=== PATIENT | female | born 1965 | race Caucasian/White ===

== ENCOUNTER → 2024-03-30 09:41 | Outpatient (CLI) | payer MEDICAID, SELFPAY ==
--- NOTE | 2024-03-30 09:45 | USCV_ITS ---
Eboni Parikh Age: 58 Gender: F : 1965 Exam Date: 03/30/2024 09:36 Ordering Phys: Clair Lackey Technologist: Exam Location: [facility] – [place]_ Indication: LE Swelling RIGHT LEFT Brachial 148.00 mmHg Brachial 138.00 mmHg Pressure (mmHg) Waveform Pressure (mmHg) Waveform 198.00 TIE BUCKER 149.00 DPA 145.00 1.34 Ankle/Brachial Index 1.01 134.00 Pre-Exercise Toe Pressure 134.00 0.91 Pre-Exercise Toe/Brachial Index 0.91 FINDINGS RT DPA noncompressible. Resting LUCY 1.34 on the right side and 1.01 on the left side. Resting TBI of 0.91 on the right side and 0.91 on the left side Right dorsalis pedis artery is noncompressible CONCLUSIONS 1. Normal resting ABIs and TBIs bilaterally suggesting no significant arterial obstruction Dr Domi Montgomery MD [facility] (Electronically Signed) Final Date: 30 March 2024 22:44 S
== END | disposition home or self-care (01) ==
LOC: RAD 09:41
PROVIDERS: PCP Physician Assistant; Visit Provider Physician Assistant
DX: I89.0 Lymphedema, not elsewhere classified (principal)
CPT/HCPCS: 93922

== ENCOUNTER 2024-04-07 12:45 | Outpatient (CLI) | payer MEDICAID, SELFPAY ==
--- NOTE | 2024-04-07 12:52 | MM_ITS ---
WS: [id number] VIEWS: MLO and CC views both breasts. 3D digital tomosynthesis is also included in this exam. No priors. Findings: There was no sign of mass, architectural distortion or suspicious calcification in either breast. The re are scattered areas of fibroglandular density MM/[place] [id number] Impression: BI-RADS: 2-Benign finding. FOLLOW-UP: 1 Year Follow-up This mammogram was also analyzed by the Computer Aided Detection System R2 Imag e Law Office Receptionist.
--- NOTE | 2024-04-07 12:52 | XR_ITS ---
WS: [id number] SCREENING DEXA SCAN Patients Know Best CLINICAL INFORMATION: POSTMENOPAUSAL COMPARISON: None. FINDINGS: The L1-L4 bone mineral density measures 1.162 g/cm2. This corresponds to a T score score of -0.2 and Z score of -0.4. Left femoral neck bone mineral density measures 1.120 g/cm2. This corresponds to a T score of 0.9 and Z score of 0.8. Right femoral neck bone mineral density measures 1.064 g/cm2. This corresponds to a T score 0.4of and Z score of 0.3. Mean femoral neck bone mineral density measures 1.092 g/cm2. This corresponds to a T score of 0.7 and Z score of 0.6. XR/XR DEXA axial skeleton* [id number] IMPRESSION: Normal bone mineralization. Patient's FRAX calculated 10 year probability for major osteoporotic fracture i s 5.7% and osteoporotic hip fracture is 0.4%.
== END 2024-04-07 12:46 | disposition home or self-care (01) ==
LOC: RAD 12:45
PROVIDERS: PCP Physician Assistant; Visit Provider Physician Assistant
DX: Z12.31 Encounter for screening mammogram for malignant neoplasm of breast (principal); R92.323 Mammographic fibroglandular density, bilateral breasts; Z78.0 Asymptomatic menopausal state
CPT/HCPCS: 77063; 77067; 77080

== ENCOUNTER → 2024-04-22 10:41 | Outpatient (BNVA) | payer MEDICAID, SELFPAY | PROVIDERS: PCP Physician Assistant; Visit Provider Podiatrist Foot & Ankle Surgery | DX: B35.1 Tinea unguium; G62.9 Polyneuropathy, unspecified; E11.42 Type 2 diabetes mellitus with diabetic polyneuropathy | CPT/HCPCS: 11721; 99203 ==

== ENCOUNTER 2024-04-27 14:26 | Outpatient (CLI) | payer MEDICAID, SELFPAY ==
--- NOTE | 2024-04-27 14:36 | CT_ITS ---
WS: [id number] CT ABDOMEN AND PELVIS WITH AND WITHOUT CONTRAST HISTORY: LUQ PAIN TECHNIQUE: Unenhanced 5 mm axial imaging first performed through the abdomen. Post contrast imaging t hrough the abdomen and pelvis. Oral contrast has been provided. Sagittal and coronal reformats are s ubmitted. All CT scans at [facility] use at least one of these dose optimization techniques: automated exposure control; mA and/or kV adjustment per patient size (includes targeted exams where d ose is matched to clinical indication); or iterative reconstruction. CONTRAST: Omnipaque 350; 95 mL IV. DLP: 2627.98 mGy.cm COMPARISON: None available. Lung bases are clear. Heart size is normal. No hiatal hernia. Normal liver and spleen. Gallbladder is slightly contracted and there is a calcification within the g allbladder. No pericholecystic fluid. Normal common bile duct. Normal adrenal glands. No renal obstru ction or calcification. Normal aorta. Pancreas: Uncinate process, head and neck of the pancreas are normal. There is a very bulbous appeara nce of the distal pancreatic tail measuring 2.4 x 2.6 cm. Typically the pancreatic tail tapers to a s maller caliber than the body. The bulbous portion of the pancreatic tail is similar enhancement to th e adjacent normal-appearing pancreatic body. Due to the abnormal configuration additional work-up is thought to necessary at this time to be sure there is no underlying mass. There is no adjacent adenop athy. The portal vein and splenic veins are normal. No ascites or adenopathy. No GI tract obstruction or inflammation. Normal appendix. No acute divertic ulitis. Degenerative disc disease at L5-S1. CT/CT abdomen pelvis wo/w [id number] IMPRESSION: 1. Bulbous appearance of the distal pancreatic tail measures 2.4 x 2.6 cm. The enhancement and attenuation is similar to the proximal normal pancreas. Typica lly the pancreatic tail tapers in size. This may be a normal configuration but is not typical. Therefore, recommend MRI pancreas with and without contrast for further evaluation. 2. Mildly contracted gallbladder with cholelithiasis. 3. No ascites or adenopathy. 4. No renal obstruction.
[2024-04-27] MEDS: iohexol 350 mg/mL 500 mL Btl (per mL) PO (14:52)
[2024-04-27] MEDS: iohexol 350 mg/mL 500 mL Btl (per mL) IV (15:55)
== END 2024-04-27 14:27 | disposition home or self-care (01) ==
LOC: RAD 14:27
PROVIDERS: PCP Physician Assistant; Visit Provider Physician Assistant
DX: R10.12 Left upper quadrant pain (principal); R93.5 Abnormal findings on diagnostic imaging of other abdominal regions, including retroperitoneum; K80.20 Calculus of gallbladder without cholecystitis without obstruction; M51.36 Other intervertebral disc degeneration, lumbar region
CPT/HCPCS: 74178; Q9967

== ENCOUNTER 2024-06-02 08:40 | Outpatient (CLI) | payer MEDICAID, SELFPAY ==
--- NOTE | 2024-06-02 08:45 | MRR_ITS ---
PROCEDURE INFORMATION: Exam: MR Abdomen Without and With Contrast Exam date and time: 06/02/2024 9:32 AM Age: 58 years old Clinical indication: Abdominal pain; Localized; Left upper quadrant (luq); Patient HX: PT states she has gall stones and pancreas inflammation; Additional info: Luq pain TECHNIQUE: Imaging protocol: Magnetic resonance imaging of the abdomen without and with contrast. COMPARISON: CT abdomen pelvis wo/w [id number] 04/27/2024 3:49 PM FINDINGS: Liver: Mildly decreased signal of the liver on out of phase imaging relative to in phase imaging. No mass. Gallbladder and biliary ducts: At least 2 dependent filling defects in the gallbladder, the larger 6.9 mm. Minimal pericholecystic fluid (series 401, image 25). The gallbladder transverse lumen measures 3.5 cm. No pericholecystic edema or definite wall thickening. Mild posterior intraluminal gallbladder sludge. The common bile duct measures 4.6 mm. No ductal calculi as visualized. Pancreas: No specific pancreatic abnormality identified. Specifically, no pancreatic tail mass identified.. Spleen: Unremarkable. No splenomegaly. Adrenal glands: Unremarkable. No mass. Kidneys and ureters: Unremarkable. No solid mass. No hydronephrosis. Stomach and bowel: Visualized stomach and intestines are unremarkable. Intraperitoneal space: No free fluid. Vasculature: No abdominal aortic aneurysm. Lymph nodes: No enlarged nodes. Bones/joints: No acute abnormality identified. No suspicious lesions. Soft tissues: Unremarkable. MR/MR abdomen wo/w con* [id number] IMPRESSION: 1. Cholelithiasis, gallbladder sludge, minimal pericholecystic fluid. No luminal dilatation or wall thickening to specifically suggest acute cholecystitis. 2. No specific pancreatic abnormality identified. Specifically, no pancreatic tail mass identified.. 3. Mild fatty infiltration of the liver.
[2024-06-02] MEDS: gadobenate dimeglumine 20 mL vial IV (10:19)
== END 2024-06-02 08:41 | disposition home or self-care (01) ==
LOC: RAD 08:41
PROVIDERS: PCP Physician Assistant; Visit Provider Family Medicine
DX: R10.12 Left upper quadrant pain (principal); K80.20 Calculus of gallbladder without cholecystitis without obstruction; K76.0 Fatty (change of) liver, not elsewhere classified
CPT/HCPCS: 74183; A9577

== ENCOUNTER 2024-06-28 20:00 | Outpatient (CLI) | payer MEDICAID, SELFPAY | END 2024-06-28 20:01 | disposition home or self-care (01) | LOC: SLEEP 23:05 | PROVIDERS: PCP Physician Assistant; Visit Provider Physician Assistant | DX: G47.33 Obstructive sleep apnea (adult) (pediatric) (principal); G47.36 Sleep related hypoventilation in conditions classified elsewhere | CPT/HCPCS: 95810 ==

== ENCOUNTER 2024-11-02 20:00 | Outpatient (CLI) | payer MEDICAID, SELFPAY | END 2024-11-02 20:01 | disposition home or self-care (01) | LOC: SLEEP 23:31 | PROVIDERS: PCP Physician Assistant; Visit Provider Physician Assistant | DX: G47.33 Obstructive sleep apnea (adult) (pediatric) (principal) | CPT/HCPCS: 95811 ==

== ENCOUNTER → 2024-11-09 10:49 | Outpatient (BNVA) | payer MEDICAID, SELFPAY | PROVIDERS: PCP Physician Assistant; Visit Provider Podiatrist Foot & Ankle Surgery | DX: B35.1 Tinea unguium (principal); G62.9 Polyneuropathy, unspecified; E11.42 Type 2 diabetes mellitus with diabetic polyneuropathy | CPT/HCPCS: 11721; 99213 ==

== ENCOUNTER 2025-02-24 14:01 | Outpatient (CLI) | payer MEDICAID, SELFPAY ==
--- NOTE | 2025-02-24 14:04 | MRR_ITS ---
PROCEDURE INFORMATION: Exam: MR Right Lower Extremity Joint Without Contrast, Knee Exam date and time: 02/24/2025 2:26 PM Age: 59 years old Clinical indication: Chronic right knee pain/history of multiple falls; Additional info: R medial knee pain TECHNIQUE: Imaging protocol: Magnetic resonance imaging of the right lower extremity joint without contrast. Exam focused on the knee. COMPARISON: CR XR knee RT 3V* [id number] 02/14/2025 12:16 PM FINDINGS: Bones/joints: No acute fracture or dislocation. Lateral compartment demonstrates intact joint space and articular cartilages. Medial compartment demonstrates mild loss joint space with associated mild chondromalacia. 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 Clinically correlate and follow-up as clinically indicated Bursae: Tiny Mccollum's cyst Medial meniscus: Large radial tear involving the free edge of the posterior horn of the medial meniscus; the tear likely extends into the meniscal body. Meniscal body is mostly extruded from joint space Lateral meniscus: Lateral meniscus is suboptimally visualized but demonstrates a likely large oblique tear of its posterior horn Anterior cruciate ligament: Unremarkable. No tear. Posterior cruciate ligament: Unremarkable. No tear. Medial capsule and supporting structures: Unremarkable. No tear. Lateral capsule and supporting structures: Unremarkable. No tear. Extensor mechanism of knee: Prominent patellar tendinosis Soft tissues: Nonspecific prepatellar subcutaneous edema. Subtle posterior calf muscle strains MR/MR knee RT wo con* [id number] IMPRESSION: 1. Medial compartment DJD as described including chondromalacia, and medial meniscus degeneration and complex tearing. 2. Suspected lateral meniscus tear as described 3. Prominent patellar tendinosis 4. 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 5. Small joint effusion
== END 2025-02-24 14:02 | disposition home or self-care (01) ==
PROVIDERS: PCP Physician Assistant; Visit Provider Physician Assistant
DX: M17.11 Unilateral primary osteoarthritis, right knee (principal); M94.261 Chondromalacia, right knee; R93.6 Abnormal findings on diagnostic imaging of limbs; M76.51 Patellar tendinitis, right knee; M25.461 Effusion, right knee; S83.241A Other tear of medial meniscus, current injury, right knee, initial encounter; S86.811A Strain of other muscle(s) and tendon(s) at lower leg level, right leg, initial encounter; X58.XXXA Exposure to other specified factors, initial encounter; M79.89 Other specified soft tissue disorders
CPT/HCPCS: 73721

== ENCOUNTER → 2025-03-10 10:52 | Outpatient (BNVA) | payer MEDICAID, SELFPAY | PROVIDERS: PCP Physician Assistant; Visit Provider Orthopaedic Surgery | DX: M17.11 Unilateral primary osteoarthritis, right knee (principal); S83.241A Other tear of medial meniscus, current injury, right knee, initial encounter; X58.XXXA Exposure to other specified factors, initial encounter | CPT/HCPCS: 99204 ==

== ENCOUNTER 2025-04-19 09:16 | Day surgery (SDC) | payer MEDICAID, SELFPAY ==
[2025-04-19] VITALS (11 sets, daily range): BP systolic 115–152; BP diastolic 83–98; PULSE 78–90; RESP 7–17; TEMP 36.1–36.3; O2SAT 93–100; BMI 32.0
--- NOTE | 2025-04-19 10:16 | ANES.PREANE2 ---
Pre-Anesthetic Assessment Height/Weight: Height 1.57 m Weight 79.379 kg Temp Pulse Resp BP Pulse Ox O2 Del Method 97.0 F L 86 17 152/93 94 Room Air 04/19/25 09:59 04/19/25 09:59 04/19/25 09:59 04/19/25 09:59 04/19/25 09:59 04/19/25 10:00 Operation Date: 04/19/25 11:40 Proposed Procedures p Knee Arthroscopy Knee Arthroscopy w/ Medial Menisectomy(Right) - Ned Lam MD Familial anesthetic complications: None Was Beta Diana taken within 24 hours: N/A Was Clonidine taken within 24 hours: N/A Last intake: Intake Last Liquid Date 04/18/25 Last Liquid Time 22:30 Last Solid Date 04/18/25 Last Solid Time 20:30 Social No alcohol and No tobacco Exam alert, oriented x 3, clear to auscultation bilaterally and regular rate & rhythm Airway Mallampati: Class IV Dentition: other (no teeth) Metabolic Diabetes Mellitus and Morbid Obesity Anesthetic Plan ASA status: 3 Anesthesia: General Risk of > 500 ml blood loss (7ml/kg in children): No Medications/Allergies Home Medications ?Medication ?Instructions ?Recorded ?Confirmed ?Last Taken ?Type furosemide 40 mg tablet 80 mg PO DAILY 04/22/24 04/18/25 04/18/25 History potassium chloride 20 mEq 40 meq PO DAILY 04/22/24 04/18/25 04/18/25 History tablet,extended release(part/cryst) diabetic shoes with 3 inserts #1 ea 11/09/24 03/10/25 Unknown Rx tirzepatide (weight loss) 2.5 2.5 mg SUBCUT Q7D 04/18/25 04/18/25 04/03/25 History mg/0.5 mL subcutaneous pen injector (Zepbound) Allergies Allergy/AdvReac Type Severity Reaction Status Date / Time naproxen (From Aleve) Allergy ADR-Gastrointestinal Verified 04/19/25 09:52 Upset Opioids - Morphine Analogues Allergy ADR-Gastrointestinal Verified 04/19/25 09:52 Upset PFSH Anesthesia Social History Smoking and tobacco/nicotine status: never used tobacco/nicotine
--- NOTE | 2025-04-19 11:08 | W.PM.OPSUD ---
Surgery/Procedure H&P Update DATE OF PROCEDURE: April 19, 2025 DATE H&P PERFORMED: 03/10/25 H&P UPDATE INFORMATION: I have reviewed H&P completed within last 30 days, I have examined patient prior to procedure and No changes to prior documentation PREOP DIAGNOSIS: Internal derangement of the right knee PLANNED PROCEDURE: Operation Date: 04/19/25 11:40 Proposed Procedures p Knee Arthroscopy Knee Arthroscopy w/ Medial Menisectomy(Right) - Ned Lam MD
[2025-04-19] MEDS: ceFAZolin 2,000 mg SDV 2000 MG IVP (11:41)
[2025-04-19] MEDS: BUPivacaine 0.5% INJ 30 mL INJECTION (12:36)
--- NOTE | 2025-04-19 12:49 | PM.OP ---
Operative Report Date of procedure: April 19, 2025 Surgeon: Ned Lam MD Procedure: Preoperative diagnosis: Internal derangement of the right knee Postoperative diagnosis: Grade II/III chondromalacia the posterior patella, medial femoral condyle, IT groove. Degenerative tearing of the posterior horn medial meniscus and central to anterior portion of lateral meniscus. Hypertrophic synovium Procedure: Diagnostic right knee arthroscopy with chondroplasty of posterior patella IT groove and medial femoral condyle. Partial meniscectomy of the posterior horn medial meniscus and anterior one half lateral meniscus. Surgeon: eNd Lam MD Anesthesia: General EBL: None Indications: bEoni is a 59-year-old white female is referred in the orthopedic clinic for debilitating right knee pain. Subsequently had an MRI by her primary care demonstrating degenerative changes of the medial compartment of the knee primarily included the posterior horn medial meniscus and articular cartilage wear the medial femoral condyle as well as the posterior patella. After failing all conservative measures she was offered a diagnostic knee arthroscopy with all indicated procedures. I did indicate that more likely is going to end up with a total knee arthroplasty in the future especially if she continues to carry the weight that she has and with the present wear in her knee already. All risk benefits treatment alternatives were discussed with her and she is agreeable to this at this time. Procedure: After obtaining her consent patient taken the operative room placed op table supine position general anesthetic administered. Once good anesthesia achieved patient was positioned on the bed with a leg salazar around her right leg just above the knee. Left leg was padded appropriately and foot the bed was dropped. Patient was secured to the bed. Right leg and knee were prepped and draped usual fashion. After surgical timeout standard anterior medial and lateral portals were made with no #11 blade. Camera cast placed into the lateral portal anterior knee was undertaken. Suprapatellar pouch was quite full of hypertrophic synovium. There is a large thickened medial plica There that was debrided with mechanical shaver. Posterior patella demonstrated grade II/III chondromalacia this too is debrided down to stable cartilaginous space. Corresponding IT groove contact areas patella also grade 2 3 chondromalacia this too was debrided mechanical shaver. Medial gutter was clear other than synovium. Medial compartment demonstrated grade 2 3 chondromalacia of the central weightbearing surface of the medial femoral condyle. There is degenerative tearing and fraying of the posterior horn of the medial meniscus. This is subsequently debrided down to stable cartilaginous space with small hand instruments and mechanical shaver. Chondromalacia was debrided with mechanical shaver down to stable cartilaginous space. Intercondylar notch demonstrated hypertrophic synovium but intact anterior cruciate ligament. Lateral compartment demonstrated on the inner edge of the anterior portion of the meniscus to be fraying and tearing this too is debrided down to a stable cartilaginous base with mechanical shaver. The remainder of articular surface of the lateral compartment is in good shape. Knee was washed sterile irrigation. Candycane layers were removed. Wounds are closed with 3-0 Prolene interrupted sutures. The wounds were injected with half percent Marcaine plain totaling 30 cc for both incision lines. Wounds are clean and dry dressed with Xeroform gauze, sterile gauze dressing, sterile Webril and an Fady wrap for compression. Patient was awakened transferred to cover room stable condition
[2025-04-19] MEDS: fentaNYL 50 mcg/mL INJ 2mL IVP (13:28)
--- NOTE | 2025-04-19 13:40 | SUR.PHASEII ---
Upon arrival from PACU patient stated her knee was hurting and rated it 8/10. Fentanyl was administered thru IV to get pain tolerable prior to discharge.
[2025-04-19] MEDS: HYDROcodone-acetaminophen 5-325 mg Tablet 1 TAB PO (14:00)
--- NOTE | 2025-04-19 14:20 | ANE.PACU2 ---
Inpatient post-anesthesia follow up: Airway intact: Yes Vital signs: Temperature 97.3 F Pulse Rate 78 Respiratory Rate 16 Blood Pressure 134/89 Pulse Oximetry 100 Oxygen Delivery Me thod Room Air Oxygen Flow Rate Fraction of Inspir ed Oxygen Hydration adequate: Yes Nausea and vomiting: No Pain level: 1 Mental status: Baseline
== END 2025-04-19 14:20 | disposition home or self-care (01) ==
PROVIDERS: PCP Physician Assistant; Visit Provider Orthopaedic Surgery
PROC: (CPT 29870; principal; 2025-04-19 11:30)
DX: M22.41 Chondromalacia patellae, right knee (principal); M23.229 Derangement of posterior horn of medial meniscus due to old tear or injury, unspecified knee; M23.2 Derangement of meniscus due to old tear or injury; M67.261 Synovial hypertrophy, not elsewhere classified, right lower leg; E11.9 Type 2 diabetes mellitus without complications; E66.01 Morbid (severe) obesity due to excess calories; Z68.32 Body mass index [BMI] 32.0-32.9, adult
CPT/HCPCS: 27437; 29880; 36416; 82962; J0690; J1100; J2250; J2405; J2704; J3010; J3490; J7030; J9999

== ENCOUNTER 2025-04-27 08:23 | Emergency (ER) | payer MEDICAID, SELFPAY ==
[2025-04-27 08:23] VITALS: BP 137/86; PULSE 92; RESP 18; TEMP 36.9; O2SAT 99; BMI 33.6
--- NOTE | 2025-04-27 08:32 | XR_ITS ---
WS: [id number] XR knee RT 3V* [id number] REASON FOR EXAM: Postop pain FINDINGS: Compared to the preoperative examination of 02/14/2025, there is increased joint effusion. There is a more significant enlargement with increased density of Hoffa's fat pad. Joint spaces are intact and no focal bone abnormality is identified. XR/XR knee RT 3V* [id number] IMPRESSION: Progression of abnormality seen on the previous plain film examination of . MRI of the knee on 02/24/2025 demonstrated significant complex abnormality of Ho ffa's fat pad and joint effusion. Uncertain if the current abnormality has prog ressed compared to the MRI.
--- NOTE | 2025-04-27 08:32 | W.ED.GENADLT ---
HPI - General Adult General: Chief complaint: Extremity Problem,Nontraumatic Stated complaint: right knee pain - post op Time Seen by Provider: 04/27/25 08:32 History of Present Illness: 59-year-old female presents to the emergency room with complaint of right knee and leg pain. Patient is 1 week postop knee arthroplasty she has Kotick swelling in her leg still has a little increased swelling and diffuse discomfort throughout the leg particularly at the knee but in the calf and medial thigh as well. No chest pain no shortness of breath. She does still have incisions with sutures in place there is no purulent drainage no redness no erythema or induration. No fever sweats or chills. Patient is diabetic. Tells me she has a history of neuropathy Associated symptoms: Deny chest pain, dyspnea or rash Related Data Home Medications ?Medication ?Instructions ?Recorded ?Confirmed furosemide 40 mg tablet 80 mg PO DAILY 04/22/24 04/18/25 potassium chloride 20 mEq 40 meq PO DAILY 04/22/24 04/18/25 tablet,extended release(part/cryst) tirzepatide (weight loss) 2.5 2.5 mg SUBCUT Q7D 04/18/25 04/18/25 mg/0.5 mL subcutaneous pen injector (Zepbound) Previous Rx's ?Medication ?Instructions ?Recorded diabetic shoes with 3 inserts #1 ea 11/09/24 hydrocodone 5 mg-acetaminophen 325 1 tab PO Q6H PRN pain #30 tabs 04/19/25 mg tablet Allergies Allergy/AdvReac Type Severity Reaction Status Date / Time naproxen (From Aleve) Allergy ADR-Gastrointestinal Verified 04/19/25 09:52 Upset Opioids - Morphine Analogues Allergy ADR-Gastrointestinal Verified 04/19/25 09:52 Upset Review of Systems Const: Denies: fever(s) or chills Card: Denies: chest pain Resp: Denies: dyspnea GI: Denies: abdominal pain : Denies: dysuria, urinary frequency or urinary urgency Musc: Denies: neck pain or back pain Skin/Breast: Denies: rash PFSH ED PFSH: Social History Smoking and tobacco/nicotine status: never used tobacco/nicotine Physical Exam Const: GENERAL APPEARANCE: cooperative ORIENTATION/CONSCIOUSNESS: Yes awake, Yes oriented to person, Yes oriented to place and Yes oriented to time HENMT: COMMON NORMALS: normocephalic, atraumatic and hearing grossly normal bilaterally HEAD & SCALP: normocephalic and atraumatic Resp: COMMON NORMALS: normal respiratory effort, No retractions, No use of accessory muscles and clear to auscultation bilaterally AUSCULTATION: clear to auscultation bilaterally Cardio: COMMON NORMALS: regular rate, regular rhythm and No murmurs present (Cardio) RATE: regular rate RHYTHM: regular rhythm GI: COMMON NORMALS: Soft to palpation and No hepatosplenomegaly present AUSCULTATION: Yes normoactive bowel sounds PALPATION: Yes Soft to palpation, No Tenderness to palpation present (GI), No Guarding due to palpation present (GI) and Yes No hepatosplenomegaly present Extremity: OTHER: Bilaterally patient has edema lower extremities slightly greater in the right than on the left. Patient reports calf pain with positive Homans. There is also pain with palpation of the medial distal thigh. Mild swelling at the knee no redness no erythema examination of the incision showed knee arthroscopy they are not inflamed or indurated there is no drainage Neuro: SENSORIUM/ORIENTATION: Yes oriented to person, Yes oriented to place and Yes oriented to time Skin: COMMON NORMALS: no rashes or lesions noted GENERAL SKIN EXAM: no rashes or lesions noted Course Vital Signs: Vital signs: Vital Signs Temperature 98.4 F 04/27/25 08:23 Pulse Rate 92 04/27/25 08:23 Respiratory Rate 18 04/27/25 08:23 Blood Pressure 137/86 04/27/25 08:23 Pulse Oximetry 99 04/27/25 08:23 Oxygen Delivery Me thod Room Air 04/27/25 08:23 [facility] - General Adult Medical Decision Making Venous duplex negative for DVT. There is small joint effusion noted on plain film as well. The plain x-ray is also normal discharge patient home continue to use crutches follow-up with your surgeon regarding any further problems. no trauma associated with this since surgery. Medical Records I reviewed the patient's medical records. Lab Data I reviewed the patient's lab results. 04/27/25 08:48 04/27/25 08:48 Radiology Impressions Knee X-Ray 04/27/25 08:32 IMPRESSION: Progression of abnormality seen on the previous plain film examination of 02/14/2025. MRI of the knee on 02/24/2025 demonstrated significant complex abnormality of Hoffa's fat pad and joint effusion. Uncertain if the current abnormality has progressed compared to the MRI. Laboratory Results WBC 11.59 10^3/uL (3.29-11.43) H 04/27/25 08:48 RBC 4.93 10^6/uL (3.85-5.65) 04/27/25 08:48 Hgb 13.70 g/dL (11.27-16.99) 04/27/25 08:48 Hct 41.7 % (36-47) 04/27/25 08:48 MCV 84.6 fl (85-98) L 04/27/25 08:48 MCH 27.8 pg (27-33) 04/27/25 08:48 MCHC 32.9 g/dL (30-55) 04/27/25 08:48 RDW 13.5 % (12.1-15.1) 04/27/25 08:48 Plt Count 309 10^3/cmm (157-399) 04/27/25 08:48 MPV 9.2 fL (7.4-10.4) 04/27/25 08:48 Neut % (Auto) 69.8 % 04/27/25 08:48 Lymph % (Auto) 17.3 % 04/27/25 08:48 [place] % (Auto) 9.7 % 04/27/25 08:48 Eos % (Auto) 2.2 % 04/27/25 08:48 Baso % (Auto) 0.7 % 04/27/25 08:48 Neut # (Auto) 8.09 10^3/uL (1.8-7.7) H 04/27/25 08:48 Lymph # (Auto) 2.0 10^3/uL (0.8-4.8) 04/27/25 08:48 [place] # (Auto) 1.1 10^3/uL (0.2-0.9) H 04/27/25 08:48 Eos # (Auto) 0.3 10^3/uL (0.0-0.8) 04/27/25 08:48 Baso # (Auto) 0.1 10^3/uL (0.0-0.1) 04/27/25 08:48 Nucleated RBC % (auto) 0 % 04/27/25 08:48 Nucleated RBCs # 0.0 /100WBC 04/27/25 08:48 Sodium 136 mmol/L (136-145) 04/27/25 08:48 Potassium 3.5 mmol/L (3.5-5.1) 04/27/25 08:48 Chloride 95 mmol/L (98-107) L 04/27/25 08:48 Carbon Dioxide 29 mmol/L (22-29) 04/27/25 08:48 Anion Gap 15.5 (5-19) 04/27/25 08:48 BUN 9 mg/dL (6-20) 04/27/25 08:48 Creatinine 0.7 mg/dL (0.5-0.9) 04/27/25 08:48 GFR Calculation 86.2 mL/min (90-130) L 04/27/25 08:48 Glucose 233 mg/dL (65-115) H 04/27/25 08:48 Calculated Osmolality 288 mOsm/kg (285-295) 04/27/25 08:48 Calcium 9.2 mg/dL (8.5-10.5) 04/27/25 08:48 Total Bilirubin 0.5 mg/dL (0.15-1.2) 04/27/25 08:48 AST 17 U/L (0-32) 04/27/25 08:48 ALT 22 U/L (0-33) 04/27/25 08:48 Alkaline Phosphatase 152 U/L (35-105) H 04/27/25 08:48 Total Protein 7.1 g/dL (6.6-8.7) 04/27/25 08:48 Albumin 3.5 g/dL (3.5-5.2) 04/27/25 08:48 Globulin 3.6 g/dL (1.3-4.6) 04/27/25 08:48 All radiology interpretation(s) finalized by discharge Discharge Plan Discharge Patient Disposition: Home Clinical Impression: Postoperative pain of right knee Condition: Stable Prescriptions: No Action furosemide 40 mg tablet 80 mg PO DAILY potassium chloride 20 mEq tablet,ER particles/crystals 40 meq PO DAILY (DME) diabetic shoes with 3 inserts See Rx Instructions .Route .MEDSUPPLY Qty: 1 0RF Rx Instructions: As directed to the shoe steve Zepbound 2.5 mg/0.5 mL Pen Injector 2.5 mg SUBCUT Q7D hydrocodone-acetaminophen 5-325 mg tablet 1 tab PO Q6H PRN (Reason: pain) Qty: 30 0RF Discharge Orders: Discharge ED (Routine); Ordered 04/27/25 Ordered By: Jorge Campos Referrals: Clair Lackey PA [Primary Care Provider, Physicians [employer]ator Systems Director] Discharge Diet: Usual diet Discharge Activity: Limit activity as instructed Patient Instructions: Opioid Safety, Pain Management, Patient Portal & Nirav Instructions Activity Restrictions/Additional Instructions: Thank you for choosing [facility] for your healthcare needs today. It is very important that you follow up as instructed or that you return to the Emergency Department should you have concerns or if your condition changes or worsens in any way. You were seen in the emergency room with complaint of right knee pain after your knee arthroscopy. X-ray of the knee did not show any acute fracture on exam there is no signs of infection your white count is not significantly elevated. Ultrasound of the leg does not show any sign of blood clot. Recommend you follow-up with the orthopedic surgeon who did your procedure if your pain continues. Continue to use the crutches that you were given after surgery and follow all other in postop instructions you were given. Print Language: Djiboutian Coding Level of Care Code ED Catal[employer] And Special Products Manager for Ross Isabel
--- OUTSIDE RECORDS SUMMARY | 2025-04-27 08:36 | XMS_ITS | Data Portability ---
Author Organization AMANDA Dayday [facility], [facility] Address [address] [address] Care Team Providers Care Music Educator Name Role Phone CLAIR LACKEY Primary Care Provider [phone] Assessment Encounter Date Assessment Date Assessment LastModified by Organization Details LastModified Time 05/19/2024 05/19/2024 I reviewed recent colonoscopy and patholog results and discussed with pt. [email or web address] Not available 06/09/2024 13:41:57 Plan of Treatment Reminders Order Date Submit Date Provider Last Modified By Organization Details Last Modified Time Details Appointments RECHECK 2024 11:00A M CLAIR LACKEY PA-C Not available Not available Not available Lab CMP, serum or plasma 2024 025 [facility], [address], [address], 03/28/2025 11:21:08 CBC 2024 025 [facility], [address], [address], 03/28/2025 10:25:14 PT/INR 2024 025 [facility] ([facility]), [address] [place], [address], 03/28/2025 10:05:49 urinalysi s, complete 2024 025 [facility], [address], [place], [address], 03/28/2025 11:21:04 culture, urine 2024 025 [facility], [address] [facility] [address], [address], [place], [address], 03/29/2025 20:50:30 microalbu min/creat inine, mass ratio, urine 2024 025 [facility], [address], [address], [place], [address], 02/16/2025 06:53:09 hemoglobi n A1C/hemog lobin total, QN, blood 2024 025 [facility], [address], [address], [place], [address], 02/14/2025 13:40:53 CMP, serum or plasma 2024 025 [facility], [address] [facility], [place], [address], 02/14/2025 13:53:17 lipid panel, blood 2024 025 [facility], [address], [place], [address], 02/14/2025 13:53:20 CBC 2024 025 [facility], [address], [address], [place], [address], 02/14/2025 13:22:04 HbA1c (hemoglob in A1c), blood 2023 024 [facility] ([facility]), [address] [place], [address], 06/24/2024 14:11:53 CMP, serum or plasma 2023 024 [facility], [address], [place], [address], 06/24/2024 14:56:24 Referral physical therapist referral [address] [facility], [address], [place], [address], 08/17/2024 14:47:40 Procedures None recorded. Surgeries None recorded. Imaging XR, knee, 3 view 2024 025 [facility] [address], [address] [place], [address], 02/15/2025 09:37:11 MRI, knee, w/o contrast [address] [facility], [address] [place], [address], 02/22/2025 17:48:36 Medication Orders furosemid e 40 mg tablet 2024 025 [facility][id number], [address], [place], [place], [id number], 03/28/2025 09:51:12 clindamyc in HCl 300 mg capsule 2024 025 [id number], [address], [place], [place], [id number], 04/11/2025 05:01:43 triamcino lone acetonide 0.1 % topical cream 2024 025 [facility][id number], [address], [place], [place], [id number], 03/28/2025 09:51:16 Mounjaro 5 mg/0.5 mL subcutane ous pen injector 2024 025 [facility] #[id number], [address], [place], [place], [id number], 03/03/2025 14:35:04 Mounjaro 7.5 mg/0.5 mL subcutane ous pen injector 2024 025 [facility] #[id number], [address], [place], [place], [id number], 03/03/2025 14:35:14 Mounjaro 10 mg/0.5 mL subcutane ous pen injector 2024 025 [facility] [employer] [facility]236, [address], [place], [place], [id number], 03/03/2025 14:35:05 Trulicity 3 mg/0.5 mL subcutane ous pen injector 2023 025 [facility] [employer] [id number], [address], [place], [place], [id number], 03/03/2025 14:35:20 Patient TargetsNo targets recorded. Patient InstructionsNo instructions recorded. Reason for Referral Physical Therapist Referral for Pain of right knee joint Referring Physician: Clair Lackey, Family Medicine, Encounter Date: 06/24/2024 Results Created Date Observation Date Name Description Value Unit Range Abnormal Flag Note LastModifiedBy Organization Detail LastModifiedTime 06/24/2006/24/2024 CMP (MALE ) glucose 107.0 mg/dL 60.0-9 9.0 high Not Available [facility] [address] [facility] [address], [place], [address], 06/24/2024 14:56:24 09/13/20 24 06/24/2024 CMP (MALE ) BUN (blood urea nitrogen) 9.0 mg/dL 10.0-2 6.0 low Not Available [facility] [address] [facility], [place], [address], 06/24/2024 14:56:24 06/24/20 24 06/24/2024 CMP (MALE ) creatinine (serum) 0.6 mg/dL 0.4-1. 5 Not Available [facility] [address] [facility], [place], [address], 06/24/2024 14:56:24 06/24/20 24 06/24/2024 CMP (MALE ) BUN/creatini ne ratio 15.00 ratio Not Available [facility] [address] [facility], [place], [address], 06/24/2024 14:56:24 06/24/20 24 06/24/2024 CMP (MALE ) eGFR calculated 109.[address] [facility] [address] [facility], [place], [address], 06/24/2024 14:56:24 06/24/20 24 06/24/2024 CMP (MALE ) total protein 8.1 g/dL 6.0-8. 5 Not Available [facility] [address] [facility], [place], [address], 06/24/2024 14:56:24 06/24/20 24 06/24/2024 CMP (MALE ) total bilirubin 0.6 mg/dL 0.2-1. 3 Not Available [facility] [address] [facility], [place], [address], 06/24/2024 14:56:24 06/24/20 24 06/24/2024 CMP (MALE ) albumin 4.2 g/dL 3.5-5. 5 Not Available [facility] [address] [facility], [place], [address], 06/24/2024 14:56:24 06/24/20 24 06/24/2024 CMP (MALE ) globulin 3.9 calc Not Available [facility] [address] [facility] 1, [place], [address], 06/24/2024 14:56:24 06/24/20 24 06/24/2024 CMP (MALE ) AST (SGOT) 39.0 U/L 0.0-46 .0 Not Available [facility] [address] [facility] 1, [place], [address], 06/24/2024 14:56:24 06/24/20 24 06/24/2024 CMP (MALE ) altv (SGPT) 29.0 U/L 13.0-6 9.0 normal Not Available [facility] [address] [facility], [place], [address], 06/24/2024 14:56:24 06/24/20 24 06/24/2024 CMP (MALE ) A/G ratio 1.1 ratio Not Available [facility] [address] [facility] 1, [place], [address], 06/24/2024 14:56:24 06/24/20 24 06/24/2024 CMP (MALE ) ALP phos 115.0 U/L 30.0-1 40.0 normal Not Available [facility] [address] [facility] 1, [place], [address], 06/24/2024 14:56:24 06/24/20 24 06/24/2024 CMP (MALE ) calcium 9.6 mg/dL 8.4-10 .5 Not Available [facility] [address] [facility] 1, [place], [address], 06/24/2024 14:56:24 06/24/20 24 06/24/2024 CMP (MALE ) sodium 140.0 mmol/ L 136.0- 145.0 Not Available [facility] [address] [facility] 1, [place], [address], 06/24/2024 14:56:24 06/24/20 24 06/24/2024 CMP (MALE ) potassium 3.5 mmol/ L 3.5-5. 1 Not Available [facility] [address] 1, [place], [address], 06/24/2024 14:56:24 06/24/20 24 06/24/2024 CMP (MALE ) chloride 98.0 mmol/ L 98.0-1 10.0 normal Not Available [facility] [address] 1, [place], [address], 06/24/2024 14:56:24 06/24/20 24 06/24/2024 CMP (MALE ) C02 39.0 mmol/ L 22.0-3 1.0 high Not Available [facility] [address] [facility] 1, [place], [address], 06/24/2024 14:56:24 06/24/20 24 06/24/2024 CMP (MALE ) anion gap 3.0 calc Not Available [facility] [address] [facility] 1, [place], [address], 06/24/2024 14:56:24 06/24/20 24 06/24/2024 CMP (MALE ) osmolality 288.4 calc Not Available [facility] [address] [facility] 1, [place], [address], 06/24/2024 14:56:24 12/31/19 25 12/30/2024 CMP (FEMA LE) glucose 153.0 mg/dL 60.0-9 9.0 high Not Available [facility] [address] [facility] 1, [place], [address], 12/30/2024 13:48:13 12/31/19 25 12/30/2024 CMP (FEMA LE) BUN (blood urea nitrogen) 7.0 mg/dL 10.0-2 6.0 low Not Available [facility] [address] [facility] 1, [place], [address], 12/30/2024 13:48:13 12/31/19 25 12/30/2024 CMP (FEMA LE) creatinine (serum) 0.6 mg/dL 0.4-1. 5 Not Available [facility] [address] [facility] 1, [place], [address], 12/30/2024 13:48:13 12/31/19 25 12/30/2024 CMP (FEMA LE) BUN/creatini ne ratio 11.67 ratio Not Available [place] [address] [facility] 1, [place], [address], 12/30/2024 13:48:13 12/31/19 25 12/30/2024 CMP (FEMA LE) eGFR calculated 109.[address] [facility] [address] [facility] 1, [place], [address], 12/30/2024 13:48:13 12/31/19 25 12/30/2024 CMP (FEMA LE) total protein 8.0 g/dL 6.0-8. 5 Not Available [facility] [address] [facility] 1, [place], [address], 12/30/2024 13:48:13 12/31/19 25 12/30/2024 CMP (FEMA LE) total bilirubin 0.7 mg/dL 0.2-1. 3 Not Available [facility] [address] [address], [place], [address], 12/30/2024 13:48:13 12/31/19 25 12/30/2024 CMP (FEMA LE) albumin 4.3 g/dL 3.5-5. 5 Not Available [facility] [address] [facility], [place], [address], 12/30/2024 13:48:13 12/31/19 25 12/30/2024 CMP (FEMA LE) globulin 3.7 calc Not Available [facility] [address] [facility] 1, [place], [address], 12/30/2024 13:48:13 12/31/19 25 12/30/2024 CMP (FEMA LE) AST (SGOT) 41.0 U/L 0.0-46 .0 Not Available [facility] [address] [facility] 1, [place], [address], 12/30/2024 13:48:13 12/31/19 25 12/30/2024 CMP (FEMA LE) altv (SGPT) 28.0 U/L 13.0-6 9.0 normal Not Available [facility] [address] [facility] 1, [place], [address], 12/30/2024 13:48:13 12/31/19 25 12/30/2024 CMP (FEMA LE) A/G ratio 1.2 ratio Not Available [facility] [address] [facility] 1, [place], [address], 12/30/2024 13:48:13 12/31/19 25 12/30/2024 CMP (FEMA LE) ALP phos 132.0 U/L 30.0-1 40.0 normal Not Available [facility] [address] [facility] 1, [place], [address], 12/30/2024 13:48:13 12/31/19 25 12/30/2024 CMP (FEMA LE) calcium 9.3 mg/dL 8.4-10 .5 Not Available [facility] [address] [facility] 1, [place], [address], 12/30/2024 13:48:13 12/31/19 25 12/30/2024 CMP (FEMA LE) sodium 138.0 mmol/ L 136.0- 145.0 Not Available [facility] [address] [facility] 1, [place], [address], 12/30/2024 13:48:13 12/31/19 25 12/30/2024 CMP (FEMA LE) potassium 3.4 mmol/ L 3.5-5. 1 low Not Available [facility] [address] [facility] 1, [place], [address], 12/30/2024 13:48:13 12/31/19 25 12/30/2024 CMP (FEMA LE) chloride 93.0 mmol/ L 98.0-1 10.0 abnormal Not Available [facility] [address] [facility] 1, [place], [address], 12/30/2024 13:48:13 12/31/19 25 12/30/2024 CMP (FEMA LE) C02 39.0 mmol/ L 22.0-3 1.0 high Not Available [facility] [address] [facility] 1, [place], [address], 12/30/2024 13:48:13 12/31/19 25 12/30/2024 CMP (FEMA LE) anion gap 6.0 calc Not Available [facility] [address] [facility] 1, [place], [address], 12/30/2024 13:48:13 12/31/19 25 12/30/2024 CMP (FEMA LE) osmolality 286.0 calc Not Available [facility] [address] [facility] 1, [place], [address], 12/30/2024 13:48:13 06/24/20 24 06/24/2024 HbA1c (hemo globi n A1c), blood HbA1c 6.9 Not Available [facility]) [address] [place], [address], 06/24/2024 13:06:29 02/15/20 25 02/14/2025 CBC WBC 11.3 x10 4.0-10 .5 high Not Available [facility] [address] [facility], [place], [address], 02/14/2025 13:22:04 02/15/20 25 02/14/2025 CBC RBC 5.39 x10 3.50-5 .50 Not Available [facility] [address] [facility] 1, [place], [address], 02/14/2025 13:22:04 02/15/20 25 02/14/2025 CBC HGB 15.7 g/dL 12.0-1 6.0 Not Available [facility] [address] [facility] 1, [place], [address], 02/14/2025 13:22:04 02/15/20 25 02/14/2025 CBC HCT 46.5 % 37.0-4 7.0 Not Available [facility] [address] [facility], [place], [address], 02/14/2025 13:22:04 02/15/20 25 02/14/2025 CBC MCV 86.2 fL 80.0-9 9.9 Not Available [facility] 805 [facility] Ra[facility]le [facility] 1, [place], [address], 02/14/2025 13:22:04 02/15/20 25 02/14/2025 CBC MCH 29.1 pg 27.0-3 2.0 Not Available [facility] [address] [facility], [place], [address], 02/14/2025 13:22:04 02/15/20 25 02/14/2025 CBC MCHC 33.8 g/dL 32.0-3 6.0 Not Available [facility] [address] [facility] 1, [place], [address], 02/14/2025 13:22:04 02/15/20 25 02/14/2025 CBC RDW 13.7 % 11.5-1 4.5 Not Available [facility] [address] [facility], [place], [address], 02/14/2025 13:22:04 02/15/20 25 02/14/2025 CBC plt 322.8 x10 140.0- 451.0 Not Available [facility] [address] [address], [place], [address], 02/14/2025 13:22:04 02/15/20 25 02/14/2025 CBC lymphocytes % 20.9 % 20.0-5 0.0 Not Available [facility] [address] [facility] 1, [place], [address], 02/14/2025 13:22:04 02/15/20 25 02/14/2025 CBC granulcytes % 68.4 % 30.0-7 0.0 Not Available [facility] [address] [facility], [place], [address], 02/14/2025 13:22:04 02/15/20 25 02/14/2025 CBC monocytes % 7.7 % 2.0-16 .0 Not Available [facility] 805 [facility] Dora [facility], [place], [address], 02/14/2025 13:22:04 02/15/20 25 02/14/2025 CBC granulcytes# 7.8 x10 Not Elizabeth [facility]able [facility] [address] [facility], [place], [address], 02/14/2025 13:22:04 02/15/20 25 02/14/2025 CBC lymphocytes # 2.4 x10 Not Available [facility] [address] [facility], [place], [address], 02/14/2025 13:22:04 02/15/20 25 02/14/2025 CBC monocytes # 0.9 x10 Not Avai lable [facility] [address] [facility] 1, [place], [address], 02/14/2025 13:22:04 02/15/20 25 02/14/2025 HBA1C hemaglobin A1C 6.0 4.2-6. 5 Not Available [facility] [address] [facility], [place], [address], 02/14/2025 13:40:53 02/15/20 25 02/14/2025 CMP (FEMA LE) glucose 134.0 mg/dL 60.0-9 9.0 high Not Available [facility] [address] [facility], [place], [address], 02/14/2025 13:53:17 02/15/20 25 02/14/2025 CMP (FEMA LE) BUN (blood urea nitrogen) 8.0 mg/dL 10.0-2 6.0 low Not Available [facility] [address] [facility], [place], [address], 02/14/2025 13:53:17 02/15/20 25 02/14/2025 CMP (FEMA LE) creatinine (serum) 0.6 mg/dL 0.4-1. 5 Not Available [facility] [address] [facility], [place], [address], 02/14/2025 13:53:17 02/15/20 25 02/14/2025 CMP (FEMA LE) BUN/creatini ne ratio 13.33 ratio Not Available [facility] [address] [facility] 1, [place], [address], 02/14/2025 13:53:17 02/15/20 25 02/14/2025 CMP (FEMA LE) eGFR calculated 109.[address] [facility] [address] [facility] 1, [place], [address], 02/14/2025 13:53:17 02/15/20 25 02/14/2025 CMP (FEMA LE) total protein 8.3 g/dL 6.0-8. 5 Not Available [facility] [address] [address], [place], [address], 02/14/2025 13:53:17 02/15/20 25 02/14/2025 CMP (FEMA LE) total bilirubin 0.8 mg/dL 0.2-1. 3 Not Available [facility] [address] [address], [place], [address], 02/14/2025 13:53:17 02/15/20 25 02/14/2025 CMP (FEMA LE) albumin 4.3 g/dL 3.5-5. 5 Not Available [facility] [address] [facility] 1, [place], [address], 02/14/2025 13:53:17 02/15/20 25 02/14/2025 CMP (FEMA LE) globulin 4.0 calc Not Available [facility] [address] [facility] 1, [place], [address], 02/14/2025 13:53:17 02/15/20 25 02/14/2025 CMP (FEMA LE) AST (SGOT) 32.0 U/L 0.0-46 .0 Not Available [facility] [address] [facility] 1, [place], [address], 02/14/2025 13:53:17 02/15/20 25 02/14/2025 CMP (FEMA LE) altv (SGPT) 30.0 U/L 13.0-6 9.0 normal Not Available [facility] [address] [facility], [place], [address], 02/14/2025 13:53:17 02/15/20 25 02/14/2025 CMP (FEMA LE) A/G ratio 1.1 ratio Not Available [facility] [address] [facility] 1, [place], [address], 02/14/2025 13:53:17 02/15/20 25 02/14/2025 CMP (FEMA LE) ALP phos 146.0 U/L 30.0-1 40.0 abnormal Not Available [facility] [address] [facility], [place], [address], 02/14/2025 13:53:17 02/15/20 25 02/14/2025 CMP (FEMA LE) calcium 9.4 mg/dL 8.4-10 .5 Not Available [facility] [address] [facility] 1, [place], [address], 02/14/2025 13:53:17 02/15/20 25 02/14/2025 CMP (FEMA LE) sodium 137.0 mmol/ L 136.0- 145.0 Not Available [facility] [address] [facility] 1, [place], [address], 02/14/2025 13:53:17 02/15/20 25 02/14/2025 CMP (FEMA LE) potassium 3.2 mmol/ L 3.5-5. 1 low Not Available [facility] [address] [facility] 1, [place], [address], 02/14/2025 13:53:17 02/15/20 25 02/14/2025 CMP (FEMA LE) chloride 94.0 mmol/ L 98.0-1 10.0 abnormal Not Available [facility] [address] [facility] 1, [place], [address], 02/14/2025 13:53:17 02/15/20 25 02/14/2025 CMP (FEMA LE) C02 37.0 mmol/ L 22.0-3 1.0 high Not Available [facility] [address] [facility] 1, [place], [address], 02/14/2025 13:53:17 02/15/20 25 02/14/2025 CMP (FEMA LE) anion gap 6.0 calc Not Available [facility] [address] [facility], [place], [address], 02/14/2025 13:53:17 02/15/20 25 02/14/2025 CMP (FEMA LE) osmolality 283.4 calc Not Available [facility] [address] [facility], [place], [address], 02/14/2025 13:53:17 02/15/20 25 02/14/2025 LIPID PROFI LE (FEMA LE) cholesterol 158.0 mg/dL 0.0-20 0.0 Not Available [facility] [address] [facility] 1, [place], [address], 02/14/2025 13:53:20 02/15/20 25 02/14/2025 LIPID PROFI LE (FEMA LE) trig 92.0 mg/dL 0.0-15 0.0 Not Available [facility] [address] [facility], [place], [address], 02/14/2025 13:53:20 02/15/20 25 02/14/2025 LIPID PROFI LE (FEMA LE) HDL - direct 47.0 mg/dL >40.[address] [facility] [address] [facility] 1, [place], [address], 02/14/2025 13:53:20 02/15/20 25 02/14/2025 LIPID PROFI LE (FEMA LE) VLDL - direct 18.4 mg/dL Not Available [facility] [address] [facility] 1, [place], [address], 02/14/2025 13:53:20 02/15/20 25 02/14/2025 LIPID PROFI LE (FEMA LE) LDL - direct 92.6 mg/dL 0.0-13 0.0 Not Available [facility] [address] [facility] 1, [place], [address], 02/14/2025 13:53:20 02/16/20 25 02/16/2025 ALBUM IN, RANDO M URINE W/CRE ATINI NE creatinine, random urine 134 mg/dL 20-275 normal Not Available [facility] [address] [place], [address], 02/16/2025 06:53:09 02/16/20 25 02/16/2025 ALBUM IN, RANDO M URINE W/CRE ATINI NE albumin, urine 0.2 mg/dL see note: normal Refer ence Range : Refer ence Range Not estab lishe d Not Available [facility] [address] [place], [address], 02/16/2025 06:53:09 02/16/2002/16/2025 ALBUM IN, RANDO M URINE W/CRE ATINI NE albumin/crea tinine ratio, random urine 1 mg/g_ creat <30 normal The ADA defin es abnor malit ies in album in excre tion as follo ws: Album inuri a Categ ory Resul t (mg/g creat inine ) Aleksandra l to Mildl y incre ased <30 Moder ately incre ased 30-29 9 Sever jinny incre ased > OR = 300 The ADA recom mends that at least two of three speci mens colle cted withi n a 3-6 month perio d be abnor mal befor e consi keli g a patie nt to be withi n a diagn ostic categ ory. Not Available [facility] [address] [place], [address], 02/16/2025 06:53:09 03/28/20 25 03/28/2025 CBC WBC 9.3 x10 4.0-10 .5 Not Available [facility] [address] [facility] 1, [place], [address], 03/28/2025 10:25:14 03/28/20 25 03/28/2025 CBC RBC 5.29 x10 3.50-5 .50 Not Available [facility] [address] [facility] 1, [place], [address], 03/28/2025 10:25:14 03/28/20 25 03/28/2025 CBC HGB 14.8 g/dL 12.0-1 6.0 Not Available [facility] [address] [facility] [place], [address], 03/28/2025 10:25:14 03/28/20 25 03/28/2025 CBC HCT 45.7 % 37.0-4 7.0 Not Available [facility] [address] [facility] [address], [place], [address], 03/28/2025 10:25:14 03/28/20 25 03/28/2025 CBC MCV 86.3 fL 80.0-9 9.9 Not Available [facility] [address] [facility], [place], [address], 03/28/2025 10:25:14 03/28/20 25 03/28/2025 CBC MCH 27.9 pg 27.0-3 2.0 Not Available [facility] [address] [facility], [place], [address], 03/28/2025 10:25:14 03/28/20 25 03/28/2025 CBC MCHC 32.3 g/dL 32.0-3 6.0 Not Available [facility] [address] [facility] [place], [address], 03/28/2025 10:25:14 03/28/20 25 03/28/2025 CBC RDW 13.7 % 11.5-1 4.5 Not Available [facility] [address] [facility] [address], [place], [address], 03/28/2025 10:25:14 03/28/20 25 03/28/2025 CBC plt 314.1 x10 140.0- 451.0 Not Available [facility] [address] [facility] [address], [place], [address], 03/28/2025 10:25:14 03/28/20 25 03/28/2025 CBC lymphocytes % 25.0 % 20.0-5 0.0 Not Available [facility] [address] [facility] [address], [place], [address], 03/28/2025 10:25:14 03/28/20 25 03/28/2025 CBC granulcytes % 63.1 % 30.0-7 0.0 Not Available [facility] [address] [facility] [address], [place], [address], 03/28/2025 10:25:14 03/28/20 25 03/28/2025 CBC monocytes % 8.1 % 2.0-16 .0 Not Available [facility] [address] [facility] [address], [place], [address], 03/28/2025 10:25:14 03/28/20 25 03/28/2025 CBC granulcytes# 5.9 x10 Not Elizabeth ilable [facility] [address], [place], [address], 03/28/2025 10:25:14 03/28/20 25 03/28/2025 CBC lymphocytes # 2.3 x10 Not Available [facility] [address], [place], [address], 03/28/2025 10:25:14 03/28/20 25 03/28/2025 CBC monocytes # 0.8 x10 Not Avai lable [facility] [address], [place], [address], 03/28/2025 10:25:14 03/28/20 25 03/28/2025 URINA LYSIS WITH MICRO color YELLOW Not Available [facility] [address], [place], [address], 03/28/2025 11:21:04 03/28/20 25 03/28/2025 URINA LYSIS WITH MICRO clarity CLEAR Not Available [facility] [address], [place], [address], 03/28/2025 11:21:04 03/28/20 25 03/28/2025 URINA LYSIS WITH MICRO glu NEGATI VE Not Available [facility] [address], [place], [address], 03/28/2025 11:21:04 03/28/20 25 03/28/2025 URINA LYSIS WITH MICRO bili NEGATI VE Not Available [facility] [address] [facility] 1, [place], [address], 03/28/2025 11:21:04 03/28/20 25 03/28/2025 URINA LYSIS WITH MICRO ket NEGATI VE Not Available [facility] [address], [place], [address], 03/28/2025 11:21:04 03/28/20 25 03/28/2025 URINA LYSIS WITH MICRO S.g 1.025 Not Available [facility] [address], [place], [address], 03/28/2025 11:21:04 03/28/20 25 03/28/2025 URINA LYSIS WITH MICRO pH 6.5 Not Available [facility] [address], [place], [address], 03/28/2025 11:21:04 03/28/20 25 03/28/2025 URINA LYSIS WITH MICRO pro 1+ abnormal Not Available [facility] [address] [facility] [address], [place], [address], 03/28/2025 11:21:04 03/28/20 25 03/28/2025 URINA LYSIS WITH MICRO uro 0.2 E.U./D L Not Available [facility] [address], [place], [address], 03/28/2025 11:21:04 03/28/20 25 03/28/2025 URINA LYSIS WITH MICRO nit NEGATI VE Not Available [facility] [address], [place], [address], 03/28/2025 11:21:04 03/28/20 25 03/28/2025 URINA LYSIS WITH MICRO blo NEGATI VE Not Available [facility] [address], [place], [address], 03/28/2025 11:21:04 03/28/20 25 03/28/2025 URINA LYSIS WITH MICRO sonia NEGATI VE Not Available [facility] [address] [facility] [address], [place], [address], 03/28/2025 11:21:04 03/28/20 25 03/28/2025 URINA LYSIS WITH MICRO WBC 2-3 Not Available [facility] [address] [facility] [address], [place], [address], 03/28/2025 11:21:04 03/28/20 25 03/28/2025 URINA LYSIS WITH MICRO RBC NEGATI VE Not Available [facility] [address] [facility] [address], [place], [address], 03/28/2025 11:21:04 03/28/20 25 03/28/2025 URINA LYSIS WITH MICRO epi cells 0-1 Not Available [facility] [address] [facility] [address], [place], [address], 03/28/2025 11:21:04 03/28/20 25 03/28/2025 URINA LYSIS WITH MICRO bacteria TRACE OF MIXED RA abnormal Not Available [facility] [address] [facility] [address], [place], [address], 03/28/2025 11:21:04 03/28/20 25 03/28/2025 URINA LYSIS WITH MICRO other NG Not Available [facility] [address] [facility] [address], [place], [address], 03/28/2025 11:21:04 03/28/20 25 03/28/2025 CMP (FEMA LE) glucose 145.0 mg/dL 60.0-9 9.0 high Not Available [facility] [address] [facility] [address], [place], [address], 03/28/2025 11:21:08 03/28/20 25 03/28/2025 CMP (FEMA LE) BUN (blood urea nitrogen) 10.0 mg/dL 10.0-2 6.0 Not Available [facility] [address] [facility] 1, [place], [address], 03/28/2025 11:21:08 03/28/20 25 03/28/2025 CMP (FEMA LE) creatinine (serum) 0.6 mg/dL 0.4-1. 5 Not Available [facility] [address] [facility] 1, [place], [address], 03/28/2025 11:21:08 03/28/20 25 03/28/2025 CMP (FEMA LE) BUN/creatini ne ratio 16.67 ratio Not Available [facility] [address] [facility] [address], [place], [address], 03/28/2025 11:21:08 03/28/20 25 03/28/2025 CMP (FEMA LE) eGFR calculated 109.5 Not Available [facility] [address] [facility] [address], [place], [address], 03/28/2025 11:21:08 03/28/20 25 03/28/2025 CMP (FEMA LE) total protein 7.5 g/dL 6.0-8. 5 Not Available [facility] [address] [address], [place], [address], 03/28/2025 11:21:08 03/28/20 25 03/28/2025 CMP (FEMA LE) total bilirubin 0.6 mg/dL 0.2-1. 3 Not Available [facility] [address] [facility] [address], [place], [address], 03/28/2025 11:21:08 03/28/20 25 03/28/2025 CMP (FEMA LE) albumin 4.0 g/dL 3.5-5. 5 Not Available [facility] [address] [facility], [place], [address], 03/28/2025 11:21:08 03/28/20 25 03/28/2025 CMP (FEMA LE) globulin 3.5 calc Not Available [facility] [place] [facility] [place] [facility] [address] [facility], [place], [address], 03/28/2025 11:21:08 03/28/20 25 03/28/2025 CMP (FEMA LE) AST (SGOT) 25.0 U/L 0.0-46 .0 Not Available [facility] [address] [facility], [place], [address], 03/28/2025 11:21:08 03/28/20 25 03/28/2025 CMP (FEMA LE) altv (SGPT) 35.0 U/L 13.0-6 9.0 normal Not Available [facility] [address] [facility], [place], [address], 03/28/2025 11:21:08 03/28/20 25 03/28/2025 CMP (FEMA LE) A/G ratio 1.1 ratio Not Available [facility] [address] [facility] [address], [place], [address], 03/28/2025 11:21:08 03/28/20 25 03/28/2025 CMP (FEMA LE) ALP phos 151.0 U/L 30.0-1 40.0 abnormal Not Available [facility] [address] [facility], [place], [address], 03/28/2025 11:21:08 03/28/20 25 03/28/2025 CMP (FEMA LE) calcium 9.2 mg/dL 8.4-10 .5 Not Available [facility] [address] [facility], [place], [address], 03/28/2025 11:21:08 03/28/20 25 03/28/2025 CMP (FEMA LE) sodium 138.0 mmol/ L 136.0- 145.0 Not Available [facility] [address] [facility] [address], [place], [address], 03/28/2025 11:21:08 03/28/20 25 03/28/2025 CMP (FEMA LE) potassium 3.6 mmol/ L 3.5-5. 1 Not Available [facility] [address] [facility] [address], [place], [address], 03/28/2025 11:21:08 03/28/20 25 03/28/2025 CMP (FEMA LE) chloride 99.0 mmol/ L 98.0-1 10.0 normal Not Available [facility] [address] [address], [place], [address], 03/28/2025 11:21:08 03/28/20 25 03/28/2025 CMP (FEMA LE) C02 31.0 mmol/ L 22.0-3 1.0 Not Available [facility] [address] [address], [place], [address], 03/28/2025 11:21:08 03/28/20 25 03/28/2025 CMP (FEMA LE) anion gap 8.0 calc Not Available [facility] [address] [address], [place], [address], 03/28/2025 11:21:08 03/28/20 25 03/28/2025 CMP (FEMA LE) osmolality 286.6 calc Not Available [facility] [address] [address], [place], [address], 03/28/2025 11:21:08 03/28/20 25 03/29/2025 CULTU RE, URINE , ROUTI NE culture, urine, routine SEE NOTE CULTU RE, URINE , ROUTI NE Micro Numbe r: [id number] Test Statu s: Final Speci men Sourc e: Urine Speci men Quali ty: Adequ ate Resul t: Mixed genit al ra isola diego. These super ficia l bacte padilla are not indic ative of a urina ry tract infec tion. No furth er organ ism ident ifica tion is warra nted on this speci men. If clini hari indic ated, recol lect clean -catc h, mid-s tream urine and trans alley immed iatel y to Urine Cultu re Trans port Tube. Not Available [facility] [address] [place], [address], 03/29/2025 20:50:30 03/28/20 25 03/28/2025 PT/IN R Protime 12.8 Not Available [facility] ([facility]) [address] [place], [address], 03/28/2025 09:43:12 03/28/20 25 03/28/2025 PT/IN R INR 1.1 Not Available [facility] ([facility]) [address] [place], [address], 03/28/2025 09:43:12 04/28/20 24 04/27/2024 CT, abdom en + pelvi s, w/wo contr ast No observ ation record ed. [email or web address] [place] [address] [address] [place], [address], 04/28/2024 14:41:12 05/17/20 24 05/05/2024 colon oscop y proce dure (PROC ) No observ ation record ed. [email or web address] [facility] [address] , [place], [address], 05/19/2024 12:29:32 06/03/20 24 06/02/2024 MRI, abdom en, w/wo contr ast No observ ation record ed. [address] [place], [address], 06/06/2024 08:24:31 07/06/20 24 06/28/2024 polys omnog melodie (PROC ) No observ ation record ed. [address], [address], [address], 07/07/2024 16:07:47 11/07/19 25 11/02/2024 home sleep study No observ ation record ed. [address], [address], [address], 11/08/2024 13:30:34 11/11/19 25 11/02/2024 polys omnog chriss, titra tion study No observ ation record ed. [email or web address] (Scheduling Orders) [address] [place], [address], 11/11/2024 17:28:57 02/15/20 25 02/14/2025 XR, knee, 3 view No observ ation record ed. [address] [place], [address], 02/14/2025 17:45:35 02/25/20 25 02/24/2025 MRI, knee, w/o contr ast No observ ation record ed. [address] [place], [address], 02/28/2025 14:36:49 Result Notes None recorded. Problems Name Problem SNOMED Code Status Onset Date Resolution Date Notes Provider Name and Address Organization Details Recorded Time Divertic angela of intestin e 92422000 Active 2023 [facility] 09:32:46 Irritabl e bowel syndrome 78146286 [facility] 2023 [facility] 20:14:19 Obstruct franky sleep apnea syndrome 73038793 Active 2023 [facility] 20:14:50 Non-alco holic fatty liver 249211391 Active 2023 [facility] 5 20:14:42 Obesity 564947456 Active 2023 ROSEMARY RINCON [facility], [place] 5 20:14:46 Long-ter m current use of insulin 993302184 [facility] 2023 [facility] 20:14:36 Diabetes mellitus 62388806 Active 2023 [facility] 5 20:13:44 Screenin g for malignan t neoplasm of colon Completed 202312/26/2024 Removal Reason: resolved [facility] 5 20:15:05 History of polyp of colon 250916042 Completed 202312/26/2024 Removal Reason: resplved [facility] 5 20:14:15 Family history of cancer of colon 472700978 Completed 202312/26/2024 Removal Reason: family [facility] 5 20:13:57 Daytime somnolen ce 49762859047 0 Completed 202312/26/2024 Removal Reason: sleep apnea ROSEMARY phipps [facility], [place] 20:13:42 Essentia l hyperten peng 59459557 Active 2023 ROSEMARY phipps [facility], [place] 20:13:48 Left upper quadrant pain 440395759 Completed 202312/26/2024 Removal Reason: resolved ROSEMARY phipps [facility], [place] 20:14:33 Tear of medial meniscus of knee 865157115 Completed 202403/25/2025 [facility] 06:51:46 Tear of lateral meniscus of knee 775492601 Completed 202403/25/2025 [facility] 06:51:42 Problem Notes None recorded. Procedures Surgical History Date Name Laterality Status Provider Name and Address Organization Details Recorded Time 11/02/19 25 continuous positive airway pressure titration completed [facility] 11/07/2024 18:50:03 06/28/20 24 polytomography completed ROSEMARY RINCON [facility], [place] 11/07/2024 18:47:43 04/07/20 24 mammography [facility] 04/07/2024 16:46:22 04/07/20 24 bone density scan completed [facility] 04/07/2024 16:46:37 07/01/20 19 colonoscopy completed ROSEMARY RINCON [facility], [place] 03/16/2024 09:35:21 03/17/20 12 Hysterectomy completed CLAIR LACKEY PA-C [address] [place] [address], [address], [facility], [facility]aja 03/17/2024 10:19:27 Imaging Results None recorded. Procedure Notes None recorded. Medical Equipment None Reported. Allergies Allergen ID Allergen Name Allergen Category Reaction Reaction Severity Criticality Documentation Date Start Date Code Code System Note Provider Name and Address Organization Details Recorded Time 98831 morphine medicatio n vomiting Not available high 03/16/2024 7052 RxNorm ROSEMARY phipps [facility], [place] 4 09:30:45 57805 naproxen medicatio n vomiting Not available low 03/16/2024 7258 RxNorm ROSEMARY phipps [facility], [place] 4 09:30:58 34677 Aleve medicatio n vomiting moderate high 03/17/2024 74781 1 RxNorm ROSEMARY phipps [facility], [place] 4 10:00:55 Medications Name Sig Start Date Stop Date Status Note LastModified by Organization Details LastModified Time furosemide 40 mg tablet TAKE 2 TABLETS BY MOUTH EVERY DAY DIRECTED 2024 active Not Available Not Available Not Avai lable metformin 500 mg tablet Take 1 tablet twice a day by oral route. 03/17 completed Not Available Not Available Not Available clindamycin HCl 300 mg capsule Take 1 capsule every 8 hours by oral route for 7 days. 04/11 completed Not Available Not Available Not Available fluoxetine 10 mg tablet Take 1 tablet every day by oral route. 03/17 completed Not Available Not Available Not Available triamcinolo ne acetonide 0.1 % topical cream APPLY THIN LAYER TOPICALLY TO THE AFFECTED AREA 1 TIME PER DAY active Not Available Not Available No t Available K-Dur 20 mEq tablet,exte nded release Take 1 tablet every day by oral route. 03/16 completed Not Available Not Available Not Available dicyclomine 20 mg tablet Take 1 tablet 4 times a day by oral route. 03/17 completed Not Available Not Available Not Available psyllium 1 tsp every day 03/17 completed Not Available Not Available Not Available Klor-Con 20meq qd 03/17 completed Not Available Not Available Not Available TRUEplus Lancets 30 gauge USE DIRECTED TO CHECK BLOOD SUGAR DAILY active Not Available Not Available No t Available potassium chloride ER 20 mEq tablet,exte nded release TAKE 1 TABLET BY MOUTH TWICE DAILY active Not Available Not Available No t Available True Metrix Glucose Test Strip USE TO CHECK BLOOD SUGAR DIRECTED EVERY DAILY active Not Available Not Available No t Available True Metrix Glucose Meter USE TO CHECK BLOOD SUGAR DAILY active Not Available Not Available No t Available Trulicity 1.5 mg/0.5 mL subcutaneou s pen injector ADMINISTE R 1.5 MG UNDER THE SKIN 1 TIME EVERY WEEK 03/03 completed Not Available Not Available Not Available Trulicity 0.75 mg/0.5 mL subcutaneou s pen injector INJECT 0.75 MG UNDER THE SKIN EVERY WEEK. 06/24 completed Not Available Not Available Not Available OneTouch Delica Plus Lancet 33 gauge USE DIRECTED 2024 active Not Available Not Available Not Avai lable Trulicity 3 mg/0.5 mL subcutaneou s pen injector Inject 3 mg every week by subcutane ous route for 30 days. 03/03 completed Not Available Not Available Not Available Mounjaro 7.5 mg/0.5 mL subcutaneou s pen injector ADMINISTE R 7.5 MG UNDER THE SKIN EVERY WEEK active Not Available Not Available No t Available Mounjaro 5 mg/0.5 mL subcutaneou s pen injector Inject 5 mg every week by subcutane ous route for 28 days. 03/03 completed Not Available Not Available Not Available Mounjaro 10 mg/0.5 mL subcutaneou s pen injector Inject 10 mg every week by subcutane ous route for 4 days. 03/03 completed Not Available Not Available Not Available Ozempic 0.25 mg or 0.5 mg (2 mg/3 mL) subcutaneou s pen injector Inject by subcutane ous route for 30 days. 06/08 completed Not Available Not Available Not Available Zepbound 5 mg/0.5 mL subcutaneou s pen injector Inject 5 mg every week by subcutane ous route. 2024 active Not Available Not Available Not Avai lable Zepbound 2.5 mg/0.5 mL subcutaneou s pen injector ADMINISTE R 2.5 MG UNDER THE SKIN EVERY WEEK active Not Available Not Available No t Available Vitals Date Recorded Body height Body mass index (BMI) Body weight Oxygen saturation Oxygen saturation in Arterial blood by Pulse oximetry Heart rate Respiratory rate Body temperature Systolic And Diastolic Provider Name and Address Organization Details Last Updated DateTime 5 157.48 cm 48.3 kg/m2 781385. 39 g 98 % 98 % 72 /min 18 /min 97 [degF] 128/70 mm[Hg] [facility] 11:56:22 Date Recorded Body height Body mass index (BMI) Body weight Oxygen saturation Oxygen saturation in Arterial blood by Pulse oximetry Heart rate Respiratory rate Body temperature Systolic And Diastolic Provider Name and Address Organization Details Last Updated DateTime 5 157.48 cm 49.9 kg/m2 902653. 72 g 99 % 99 % 76 /min 18 /min 98 [degF] 118/70 mm[Hg] [facility] 5 09:19:28 Date Recorded Body height Body mass index (BMI) Body weight Oxygen saturation Oxygen saturation in Arterial blood by Pulse oximetry Heart rate Respiratory rate Provider Name and Address Organization Details Last Updated DateTime 4 157.48 cm 49.5 kg/m2 375979. 74 g 94 % 94 % 102 /min 20 /min Zeinab Suarez [facility] 4 12:17:11 Date Recorded Body height Body mass index (BMI) Body weight Oxygen saturation Oxygen saturation in Arterial blood by Pulse oximetry Heart rate Respiratory rate Body temperature Systolic And Diastolic Provider Name and Address Organization Details Last Updated DateTime 4 157.48 cm 47.9 kg/m2 640215. 2 g 99 % 99 % 78 /min 20 /min 97.9 [degF] 130/70 mm[Hg] ROSEMARY HASARAN [facility] 4 12:25:28 Social History None recorded. Functional Status None recorded. Mental Status None recorded. Family History Nothing Reported. Medical History No medical history recorded. Gynecological HistoryNo gynecological history recorded. Obstetrics History GPAL:G 0 P 0 0 0 0 Immunizations Vaccine Type Date Status Note Provider Nam e and Address Organization Details Recorded Time COVID-19 vaccine, vector-nr, rS-Ad26, PF, 0.5 mL 02/23/2021 completed CLAIR LACKEY PA-C [address] [place] [address], [phone], [facility] 03/31/2024 11:23:01 Influenza, split virus, trivalent, PF 06/24/2024 completed CLAIR LACKEY PA-C [address] [place] [address], [phone], [facility] 06/24/2024 15:17:08 Past Encounters Encounter ID Performer Location Encounter Start Date Encounter Closed Date Diagnosis/Indication Diagnosis SNOMED-CT Code Diagnosis ICD10 Code Diagnosis Note [id number] CLAIR LACKEY PA-C [facility] ([facility]) [address] [place] [address] 03/17/2024 09:51:29 03/18/2024 09:36:51 Glaucoma 00596618 H40.9 Diabetes mellitus 842108 09 E13.42 Lymphedema of lower extremity 431764367 I89.0 Onychomyco sis of toenails 042132440 B35.1 Paresthesia 87636205 R20 .2 Screening for malignant neoplasm of breast 610273106 Z12.39 Screening for osteoporosis 978503698 Z13.820 Screening for malignant neoplasm of colon 307279373 Z12.11 Rib pain 839336344 R07.8 1 [id number] CLAIR LACKEY PA-C [facility] ([facility]) [address] [place] [phone] 03/31/2024 10:12:29 04/01/2024 16:12:48 Left upper quadrant pain 913250598 R10.12 persistanc e LUQ pain. normal Xrays. Obstructiv e sleep apnea syndrome 62750536 G47.33 [place]. Pt benifits from continued use. She is in need of new machine (current is 10 yrs old) and new mask and tubing supplies.F ailure to have with cause decline in her health and quality of life. Diabetes mellitus 745481 09 E13.42 will have my nurse set her up with testing supplies for home sugars. Lymphedema of lower extremity 740158291 I89.0 [id number] Joseluis Conteh DO [facility] ([facility]) [address] [place] [id number] 04/11/2024 10:15:28 04/11/2024 13:49:31 Screening for malignant neoplasm of colon 160688182 Z12.11 I have reviewed and discussed colon cancer screening options, including colonoscop y. Discussed risks vs benefits including risk of infection and bleeding, perforatio n, possible need for surgery, reaction to medication s, and sever injury or . We discussed pt requiring sedation and possible general anesthesia . Pt agrees to proceed with Colonoscop y at [facility]. Preliminar y procedure date will be 04/28/24 Diabetes mellitus 311491 09 E13.42 E11.69 A1c 8.3 about 1 mt ago, but fasting glucose much improved with addition of Trulicity. Counseled patient on risks of procedures . She will hold off on Trulicity the day of procedure and restart the day after. Obstructiv e sleep apnea syndrome 82315013 G47.33 Counseled patient. Diverticul a of intestine 22837867 K57.90 History of. Will proceed with colonoscop y. Family his tory of cancer of colon 408551210 Z80.0 History of polyp of colon 392042144 Z86.304 [id number] Joseluis Conteh DO [facility] ([facility]) [address] [place] [phone] 05/19/2024 11:51:53 05/19/2024 12:37:41 Irritable bowel syndrome 57020597 K58.9 Sigmoid colon ulcer 7990 08 K63.3 Per colonoscop y on 05/04/2024. These appeared acute not chronic. Biopsies revealed no sign of any chronic ulcerative disease. These were also phil timmons Counseled patient on diagnosis. We will hold off on any antibiotic s at this time and expect slow improvemen t. Recommend consider repeat colonoscop y in 3 to 6 months. Patient is to return sooner with problems. Counseled on signs and symptoms of concern. Go to the ER with any severe abdominal pain or significan t bleeding. [id number] CLAIR LACKEY PA-C [facility] ([facility]) [address] [place] [phone] 06/24/2024 12:21:40 06/24/2024 13:18:16 Type 2 diabetes mellitus 57359357 E11.9 Pain of ri ght knee joint 5205514364 97112 M25.561 Possible lateral meniscus tear, referral to PT. Lymphedema of bilateral lower limbs 6354839014 9280907 I89.0 Needs order to orthotics for lymphedema wraps that she liked. Administra tion of influenza vaccine 06913731 Z23 [id number] CLAIR LACKEY PA-C [facility] ([facility]) [address] [place] [phone] 12/30/2024 12:37:10 01/02/2025 11:54:55 [id number] CLAIR LACKEY PA-C [facility] ([facility]) [address] [place] [id number] 02/14/2025 11:25:53 02/15/2025 09:37:11 Diabetes mellitus 14306024 E13.42 E11.69 Obstructiv e sleep apnea syndrome 09912214 G47.33 home: Face to face for Bipap. Pt is compliant with her usage and failure to have would result in decline in her health status. She has comorbid conditions of obesity, DM, HTN please supply with yr of tubing and masks. Pain of knee region 1003 407865 M25.561 Possible lateral meniscus tear,Pt has tried and failed 6 weeks of home exercises of strengthen ing and stretching her quads and hamstrings . She has also taking NSAIDspain and instabilit y continue and she is needs a cane to walk. greatly effecting her ADLsI recommend MRI to r/u meniscal tear to confirm suspicion [id number] CLAIR LACKEY PA-C [facility] ([facility]) [address] [place] [address] 03/28/2025 09:07:14 03/28/2025 17:46:47 Acute meniscal tear, medial 543632764 S83.231D Preprocedu ral examination done 4825265620 73143 Z01.818 labs are normalHer AHA cardiac risk for surgery is1%[place]/Arrest lowJohnson Respirator y Failure risk is low. I feel pt is low risk and cleared out pt, non emergent, orthopedic meniscal repair surgery. Obstructiv e sleep apnea syndrome [id number] G47.33 Lymphedema [id number] I89 .0 encouarged her to start wearing her compressio n stockings more consistant ly. Obesity [id number] E66.9 Health Concerns Section Related Observation LastModified by Organization Detai ls LastModified Time None Recorded Concern Status LastModified by Organization Details LastModified Time None Recorded Advance Directives Directive None Recorded Payers Insurance Date Sequence Insurance Name Policy Number Policy Dejesus Covered Member ID Dejesus Member ID Guarantor Name 03/28/2025 1 [place] Eboni Parikh [id number] Eboni Parikh 03/25/2025 [place] [facility]) Eboni Parikh [id number] Eboni Parikh Notes Date Note Type Note Provider Name and Address Organization Details Recorded Time 05/19/2024 text/html pt presents for f/u on colonoscopy and discuss results We performed a colonoscopy at [facility] on 05/05/2024. Patient tolerated procedure well and recovered well with any significant bleeding fevers or severe abdominal pain.The procedure revealed no polyps or tumors. It did show a few small superficial ulcerations in the sigmoid colon which were biopsied.The pathology revealed normal mucosa. No sign of any chronic ulcerative disease including Crohn's or ulcerative colitis. Joseluis Conteh DO [address] [place], [phone], [facility], [place]. 06/09/2024 13:42:59 06/24/2024 text/html DiabetesReported bypatient.Review finger sticks:fastin Duration:chronic Control:usually well controlled; improved since last visit; normal range of home blood sugars (in the low 100s); treated with insulin; hemoglobin A1C has been 8-9; hemoglobin A1C goal is less than 6.5 Compliance:compliant with medications; compliant with follow-up visits; compliant with diet; compliant with physical activity; compliant with home glucose monitoring; no side effects from medications Self Care:monitoring glucose daily 58 year old female presents to the clinic for three month follow up on her diabetes. She was started on trulicity 1.5mg and has been taking it without side effects. She has been checking her sugars daily and averaging in the 130 with lowest being 110. Her last A1c was 8.3 and will be updated today. She also has some right knee pain that has gotten worse over the past couple months. She feels it clicking and locking on the lateral side of the knee. She noticed it when she is climbing up the stairs it will feel like her knee with lock or give out. She is using a whitfield to help her walk around and go up stairs. She does not remember a specific traumatic event that caused it. She denies weakness, tingling or numbness in extremities. CLAIR LACEKY PA-C [address] [place], [phone], [facility], [place]. 06/24/2024 15:18:13 02/14/2025 text/html Musculoskeletal PainReported bypatient.Location:rig ht knee Severity:worsening Duration:present for 1-6 months Alleviating Factors:rest; changing position; cold compress Aggravating factors:walking Associated Symptoms:no fever ADLs Affected:walking; sweeping; dressing; climbing stairsObstructive Sleep ApneaReported bypatient.Severity:mod erate Timing:gradual; chronic; recurrent Duration:5years Context:history of sleep disorder; hypertension; observed apnea Aggravating Factors:sleep disruption Alleviating Factors:positive airway pressure devices Associated Symptoms:no morning headache; no awakening short of breath; no night sweats; no daytime sleepiness; no suddenly falling asleep during the day; no napping; no impaired work performance; no nasal congestion; no snoring; no gasping for air I have been using the bipap since December 13 2024 and am up to at least 4 -5 hours a night it is helping . I need a note sent to Home so I can continue itThinks she is feeling somewhat better with energy. still having some belly pain and gassy feeling CLAIR LACKEY PA-C [address] [place], [phone], [facility] 02/14/2025 17:59:23 03/28/2025 text/html Pre-OpReported bypatient.Surgery to be Performed:right knee repair meniscal tear of medial and lateral sides Severity:moderate Risk Factorsno cognitive impairment; no functional impairment; no malnutrition; no frailty; able to climb a flight of stairs (exercise capacity>4 METS); non-smoker; no alcohol misuse; no illicit drug use; no chronic cardiopulmonary condition;obstructive sleep apnea;obese Anesthesia hx:no hx of anesthesia complications; no allergy to anesthetic agents; no family history of anesthesia complications; no history with anesthesia Functional Ability:cannot walk up stairs;unable to perform heavy work around the house;difficulty walking up hills;unable to walk 4 mph; due to her knee pain Post-Op Support:no need for assistance CLAIR LACKEY PA-C [address] [place] [address], [phone], [facility] 03/28/2025 17:44:57 OBGyn Episode No OBEpisode recorded.
--- NOTE | 2025-04-27 08:38 | USCV_ITS ---
Eboni Parikh Age: 59 Gender: F : 1965 Exam Date: 04/27/2025 08:59 Ordering Phys: Jorge Campos DO Technologist: DANIELLE Exam Location: [facility] – [place] Indication: RLE Pain post knee arthroplasty HISTORY: Lower extremity pain. PROCEDURES: Venous duplex imaging was performed in only the right lower extremity. The following venous structures were evaluated: common femoral vein, profunda vein, proximal portion of the greater saphenous vein, superficial femoral vein, and the popliteal vein. In addition, the posterior tibial and peroneal trunk were evaluated. Serial compression, augmentation maneuvers, and spectral Doppler flow evaluation were performed. FINDINGS: No evidence of DVT seen in any vessel visualized at this time. CONCLUSIONS No evidence of right lower extremity DVT. Kunal Marshall MD (Electronically Signed) Final Date: 27 April 2025 09:51 S
[2025-04-27 08:55] LABS: Hematocrit 41.7 % (36-47); Hemoglobin 13.70 g/dL (11.27-16.99); Mean Corpuscular HGB Conc 32.9 g/dL (30-55); Mean Corpuscular Hemoglobin 27.8 pg (27-33); Mean Corpuscular Volume 84.6 fl (85-98); Nucleated Red Blood Cells % 0 %; Platelet Count 309 10^3/cmm (157-399); Red Blood Count 4.93 10^6/uL (3.85-5.65); White Blood Count 11.59 10^3/uL (3.29-11.43)
[2025-04-27 09:18] LABS: Alanine Aminotransferase 22 U/L (0-33); Albumin Level 3.5 g/dL (3.5-5.2); Alkaline Phosphatase 152 U/L (35-105); Anion Gap 15.5 (5-19); Aspartate Amino Transferase 17 U/L (0-32); Blood Urea Nitrogen 9 mg/dL (6-20); Calcium 9.2 mg/dL (8.5-10.5); Carbon Dioxide 29 mmol/L (22-29); Chloride 95 mmol/L (98-107); Creatinine Clr Calc Pharmacy 85.3537; Globulin 3.6 g/dL (1.3-4.6); Glucose 233 mg/dL (65-115); Osmolality Calculated 288 mOsm/kg (285-295); Potassium 3.5 mmol/L (3.5-5.1); Sodium 136 mmol/L (136-145); Total Protein 7.1 g/dL (6.6-8.7)
== END 2025-04-27 09:48 | disposition home or self-care (01) ==
PROVIDERS: Emergency Provider Family Medicine; PCP Physician Assistant
DX: G89.18 Other acute postprocedural pain (principal); M25.561 Pain in right knee; Z96.651 Presence of right artificial knee joint; Z79.899 Other long term (current) drug therapy
CPT/HCPCS: 36415; 73562; 80053; 85025; 93971; 99284

== ENCOUNTER → 2025-05-04 10:24 | Outpatient (BNVA) | payer MEDICAID, SELFPAY | PROVIDERS: PCP Physician Assistant; Visit Provider Orthopaedic Surgery | DX: Z98.890 Other specified postprocedural states (principal) | CPT/HCPCS: 99024 ==

== ENCOUNTER → 2025-05-10 10:06 | Outpatient (BNVA) | payer MEDICAID, SELFPAY | PROVIDERS: PCP Physician Assistant; Visit Provider Podiatrist Foot & Ankle Surgery | DX: E11.42 Type 2 diabetes mellitus with diabetic polyneuropathy (principal); B35.1 Tinea unguium; G62.9 Polyneuropathy, unspecified | CPT/HCPCS: 11721; 99214 ==

== ENCOUNTER → 2025-06-01 11:06 | Outpatient (BNVA) | payer MEDICAID, SELFPAY | PROVIDERS: PCP Physician Assistant; Visit Provider Orthopaedic Surgery | DX: Z98.890 Other specified postprocedural states (principal) | CPT/HCPCS: 99024 ==

== ENCOUNTER 2025-08-03 14:50 | Outpatient (CLI) | payer MEDICAID, SELFPAY ==
--- NOTE | 2025-08-03 14:55 | MM_ITS ---
WS: [id number] BILATERAL SCREENING DIGITAL TOMOSYNTHESIS MAMMOGRAM WITH CAD HISTORY: SCREENING COMPARISON: 04/07/2024 Bilateral CC and MLO views with tomosynthesis and synthetic mammography submitted. Computer aided detection analyzed. Breast composition: There are scattered areas of fibroglandular density. No suspicious masses, microcalcifications or architectural distortion. Benign calcifications in each breast. No suspicious mass or grouping of calcifications. MM/MM scr BI tomosynthesis 41800 IMPRESSION: BI-RADS: 2 - Benign. FOLLOW UP: 1 Year Follow-up
== END 2025-08-03 14:51 | disposition home or self-care (01) ==
LOC: RAD 14:50
PROVIDERS: PCP Physician Assistant; Visit Provider Physician Assistant
DX: Z12.31 Encounter for screening mammogram for malignant neoplasm of breast (principal); R92.323 Mammographic fibroglandular density, bilateral breasts; R92.1 Mammographic calcification found on diagnostic imaging of breast
CPT/HCPCS: 77063; 77067